=== PATIENT | male | born 1985 | race Two or more races ===

== ENCOUNTER 2023-10-28 11:19 | Emergency (ER) | payer OTHER ==
[~2023-10-28] VITALS: Ht 180.3 cm; Wt 95.3 kg
[2023-10-28 11:27] VITALS: TEMP 98.2
[2023-10-28 12:17] VITALS: BP 130/70; O2SAT 99
== END 2023-10-28 12:17 ==
LOC: ER 11:22
DX: M24.522 Contracture, left elbow (principal)